=== PATIENT | male | born 1965 | race African-American/Black ===

== ENCOUNTER 2018-11-16 18:20 | Emergency (ER) | payer BC ==
[~2018-11-16] VITALS: Ht 175.3 cm; Wt 90.9 kg
[2018-11-16 18:21] VITALS: Ht 175.3 cm; Wt 90.9 kg
[2018-11-16] MEDS ORDERED: VOLTAREN75 MG PO (19:59)
[2018-11-16] MEDS ORDERED: TYLENOL W/CODEI1 TAB PO (19:59)
[2018-11-16 20:50] VITALS: BP 122/85
== END 2018-11-16 20:50 | disposition home or self-care (01) ==
LOC: D.ER 18:20
DX: S82.402A Unspecified fracture of shaft of left fibula, initial encounter for closed fracture (principal); V29.9XXA Motorcycle rider (driver) (passenger) injured in unspecified traffic accident, initial encounter; Y93.89 Activity, other specified; Y92.89 Other specified places as the place of occurrence of the external cause